=== PATIENT | female | born 1955 | race Caucasian/White ===

== ENCOUNTER 2020-12-23 10:49 | Emergency (ER) | payer BC, OTHER ==
[2020-12-23 11:22] VITALS: BP 136/74
--- NOTE | 2020-12-23 12:24 | XRAY Report ---
PROCEDURE: Shoulder 3 View LT INDICATIONS: fall pain to distal clavicle a/c TECHNIQUE: 3 views of the shoulder were acquired. COMPARISON: None. FINDINGS: Bones: No fractures or dislocations. No suspicious bony lesions. Visualized ribs appear intact. Soft tissues: No suspicious soft tissue calcifications. IMPRESSION: No evidence acute bony abnormality of the left shoulder. If clinical suspicion and/or symptoms persist, further assessment with repeat plain films or advanced imaging (e.g., CT, MRI, or bone scan) may be helpful for further assessment. Reviewed by: Sanjay Crawford MD on 12/23/2020 11:23 AM ROSA Approved by: Sanjay Crawford MD on 12/23/2020 11:23 AM ROSA Station ID: [id number]
--- NOTE | 2020-12-23 12:25 | XRAY Report ---
PROCEDURE: Tib/Fib LT INDICATIONS: contusion lateral distal TECHNIQUE: 2 views of the tibia and fibula were acquired. COMPARISON: None FINDINGS: Bones: No fractures or dislocations. No suspicious bony lesions. Soft tissues: No suspicious soft tissue calcifications or masses. IMPRESSION: No evidence acute bony abnormality of the left tibia and fibula. Reviewed by: Sanjay Crawford MD on 12/23/2020 11:23 AM ROSA Approved by: Sanjay Crawford MD on 12/23/2020 11:23 AM ROSA Station ID: [id number]
--- NOTE | 2020-12-23 12:29 | ED Physician Documentation ---
PD HPI Fall - Stated complaint Stated Complaint: L BODY PX/GLF - Chief complaint Chief Complaint: Ext Problem - History obtained from History obtained from: Patient, Family - History of Present Illness Mechanism of injury: Other (decking gave way) Fall distance: Standing position Where injury occurred: A house / apartment Timing - onset: Today Injury(ies) location: Left Uppper Extremity, Left Lower Extremity Quality of pain: Pain, Throbbing Associated symptoms: No: LOC, AMS, Amnesia, Seizures, Ear drainage, Nasal drainage, Neck pain, Weakness, Paresthesias, Dyspnea, Nausea / vomiting, Hematemesis, Abdominal distension Symptoms improve with: Rest Worsens with: Movement, Palpation Contributing factors: No: Anticoagulated Similar symptoms before: Has not had sx before Recently seen: Not recently seen - Additional information Additional information: Previously well 65-year-old female was out on her deck fixing an [employer] chair. She had a paint cloth down, and she went to step on an area of her deck she does not usually walk on, her foot went right through. This was a low rise deck and she bruised the lateral aspect of her left leg and fell onto her left shoulder. She is complaining of pain in the left shoulder and some bruising and pain to the left lower extremity. She is able to walk and she comes into the emergency department with the leg bandaged. 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 : None HEENT: Chronic vision loss Psych: Depression, Anxiety Musculoskeletal: None Derm: None - Past Surgical History Past Surgical History: Yes /ANTENNA RIGGER: Hysterectomy - Present Medications Home Medications: Ambulatory Orders Medication Instructions Recorded Confirmed Citalopram [CeleXA] 01/10/15 01/10/15 LORazepam [Ativan] 0.5 mg PO DAILY PRN 01/10/15 01/10/15 Levothyroxine Sodium [Levoxyl] 01/10/15 01/10/15 Oxycodone HCl/Acetaminophen 1 - 2 each PO Q6H PRN #15 tablet 01/10/15 [Percocet 5-325 mg Tablet] HYDROcod/ACETAM 5/325 [[place] 5/325] 1 - 2 tablet PO Q6H PRN #14 tablet 12/23/20 - Allergies Allergies/Adverse Reactions: Allergies Allergy/AdvReac Type Severity Reaction Status Date / Time No Known Drug Allergies Allergy Verified 01/10/15 22:32 - Social History Does the pt smoke?: No Smoking Status: Never smoker Does the pt drink ETOH?: Yes ETOH Use: Wine Does the pt have substance abuse?: No - Immunizations Immunizations are current?: Yes PD ED PE NORMAL - Vitals Vital signs reviewed: Yes (hypertension) - General General: Alert and oriented X 3, No acute distress, Well developed/nourished - HEENT HEENT: Atraumatic, PERRL, EOMI - Respiratory Respiratory: No respiratory distress - Derm Derm: Normal color, Warm and dry, No rash - Extremities Extremities: No deformity, No edema, Other (There is tenderness to the anterior deltoid and the top of the shoulder on the left side there is reduced range of motion secondary to pain. There is no deformity noted. 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, No motor deficit, No sensory deficit, Normal speech Eye Opening: Spontaneous Motor: Obeys Commands Verbal: Oriented GCS Score: 15 - Psych Psych: Normal mood, Normal affect Results - Vitals Vitals: Vital Signs - 24 hr 12/23/20 11:19 Temperature 37.1 C Heart Rate 79 Respiratory 16 Rate Blood Pressure 136/74 H O2 Saturation 99 Oxygen O2 Source Room air - Rads (name of study) tib fib Radiology: Prelim report reviewed (Impression: No evidence of acute bony abnormality to the left tibia and fibula.), EMP read indepedently, See rad report Left shoulder Radiology: Prelim report reviewed (Impression: No evidence of acute bony abnormality of the left shoulder.), EMP read indepedently, See rad report PD MEDICAL DECISION MAKING - ED course Complexity details: reviewed results, re-evaluated patient, considered differential, d/w patient, d/w family ED course: 65-year-old female has fallen through her deck and bruised her left calf and her left shoulder. Diagnostic imaging is without evidence of fracture and the patient is placed into a sling. She is able to walk and is in she is instructed to ice and elevate her left leg. Departure - Departure Disposition: 01 Home, Self Care Clinical Impression: Contusion of left lower extremity Qualifiers: Encounter type: initial encounter Qualified Code(s): S80.12XA - Contusion of left lower leg, initial encounter Sprain of left shoulder Qualifiers: Encounter type: initial encounter Shoulder sprain type: unspecified sprain Qualified Code(s): S43.402A - Unspecified sprain of left shoulder joint, initial encounter Condition: Stable Instructions: ED Contusion Lower Ext, ED Sprain Shoulder Follow-Up: Hector Adame MD [Provider Admit Priv/Credential] - Prescriptions: HYDROcod/ACETAM 5/325 [[place] 5/325] 1 - 2 tablet PO Q6H PRN #14 tablet PRN Reason: Pain Discharge Date/Time: 12/23/20 12:52
== END 2020-12-23 12:52 | disposition home or self-care (01) ==
LOC: ED 10:49
DX: S80.12XA Contusion of left lower leg, initial encounter (principal); S43.402A Unspecified sprain of left shoulder joint, initial encounter; W13.8XXA Fall from, out of or through other building or structure, initial encounter; Y93.89 Activity, other specified; Y92.008 Other place in unspecified non-institutional (private) residence as the place of occurrence of the external cause; I10 Essential (primary) hypertension
CPT/HCPCS: 99283; 99284

== ENCOUNTER 2021-01-14 08:00 | Outpatient (CLI) | payer BC | END 2021-01-14 23:59 | disposition home or self-care (01) | LOC: LAB.S 08:00 | PROVIDERS: ATTEND Physician Assistant Medical | DX: L08.9 Local infection of the skin and subcutaneous tissue, unspecified (principal); L03.116 Cellulitis of left lower limb | CPT/HCPCS: 87070; 87205 ==